=== PATIENT | female | born 1965 | race Caucasian/White ===

== ENCOUNTER → 2018-05-24 | Outpatient (CLI) | payer OTHER ==
[2018-05-24 12:06] LABS: Basophils % (A) 1 %; Eosinophils # (A) 0.1 k/uL (0-0.7); Eosinophils % (A) 2 %; HCT 42.3 % (34.0-46.0); HGB 13.8 gm/dL (11.4-16.0); Lymphocytes # (A) 1.3 k/uL (1.0-4.8); Lymphocytes % (A) 19 %; MCH 29.4 pg (25.0-35.0); MCHC 32.5 g/dL (31.0-37.0); MCV 90.5 fL (80.0-100.0); Mean Platelet Volume 7.2; Monocytes # (A) 0.3 k/uL (0-1.0); Monocytes % (A) 5 %; Neutrophils # (A) 5.1 k/uL (1.3-7.7); Neutrophils % (A) 73 %; Platelet Count 303 k/uL (150-450); RBC 4.68 m/uL (3.80-5.40); RDW 13.1 % (11.5-15.5)
[2018-05-24 13:23] LABS: Erythrocyte Sedimentation Rate 13 mm/hr (0-20)
[2018-05-24 16:12] LABS: Albumin 4.4 g/dL (3.80-4.90); Albumin/Globulin Ratio 1.91 (1.20-2.10); Anion Gap 4.8 mmol/L (4.00-12.00); Calcium 9.5 mg/dL (8.7-10.3); Carbon Dioxide 31.2 mmol/L (21.6-31.8); Globulin 2.3 g/dL (2.1-3.7); Potassium 4.2 mmol/L (3.5-5.5); Total Bilirubin 0.6 mg/dL (0.3-1.2); Total Protein 6.7 g/dL (6.2-8.2)
[2018-05-24 17:26] LABS: Rheumatoid Factor 7 IU/mL (0-15)
[2018-05-25 04:13] LABS: Angiotensin-1 Converting Enz. 57 U/L (8-52)
[2018-05-25 13:30] LABS: C-ANCA <1:20 Titer (<1:20); P-ANCA <1:20 Titer (<1:20)
== END | disposition home or self-care (01) ==
LOC: LABWHC1 10:40
PROVIDERS: ATTEND Internal Medicine Critical Care Medicine
DX: R91.8 Other nonspecific abnormal finding of lung field (principal)
CPT/HCPCS: 36415; 80053; 82164; 85025; 85652; 86038; 86255; 86431

== ENCOUNTER 2018-06-01 09:28 | Day surgery (SDC) | payer OTHER ==
[2018-05-26 15:40] VITALS: BMI 21.4
[~2018-06-01 09:28] MED LIST: ALBUTEROL NEB (CONC) 2.5 MG/0.5 ML INHALATION ONE; DEXAMETHASONE SOD PHOSPHATE 10 MG/ML 1 ML VIAL IV ONE; LACTATED RINGERS 1,000 ML IV ONE; LACTATED RINGERS 1,000 ML IV SCH; LIDOCAINE 1% 20 ML VIAL (10MG/ML) FOR IV START INTRADERMA PRN; LIDOCAINE 2% (PF) 20 MG/ML 2 ML AMP INHALATION ONE; LIDOCAINE VISCOUS 300 MG/15 ML CUP MUCOUS MEM ONE; MIDAZOLAM 2 MG/2 ML VIAL IV PRN; ONDANSETRON 4 MG/2 ML VIAL IVP ONE; fentaNYL (PF) 50 MCG/ML 2 ML AMP IV PRN
[2018-06-01] MEDS ORDERED: LIDOCAINE 1% INJ 10MG/ML (20 ML MDV) ONE ×2 (12:44)
[2018-06-01] MEDS ORDERED: GLYCOPYRROLATE 0.2 MG/ML 2 ML VIAL ONE (12:44)
[2018-06-01] MEDS ORDERED: fentaNYL (PF) 50 MCG/ML 2 ML AMP ONE (12:44)
[2018-06-01] MEDS ORDERED: PROPOFOL 10 MG/ML 20 ML VIAL IV ONE (12:44)
[2018-06-01] MEDS ORDERED: MIDAZOLAM 2 MG/2 ML VIAL ONE (12:44)
[2018-06-01] MEDS ORDERED: LACTATED RINGERS 1,000 ML IV ONE (13:20)
--- NOTE | 2018-06-01 13:25 | P.PCN ---
Date of Procedure: 06/01/18 Preoperative Diagnosis: Bilateral pulmonary nodules Postoperative Diagnosis: Bilateral pulmonary nodule Procedure(s) Performed: Medications bronchoscopy, flexible bronchoscopy, bronchoalveolar lavage, transbronchial biopsy Anesthesia: JOIEA Surgeon: Ortiz Duque Twister Tender #1: Kailyn Merida Estimated Blood Loss (ml): 5 Pathology: other Condition: stable Disposition: same day Operative Findings: This is a navigational bronchoscopy that was done and the operating room. The patient had a preoperative CAT scan of the chest and the CAT scan data was uploaded into the [facility] navigational system. There V pads was applied to the chest. Following that, the patient was brought into the operating room and she was intubated in the usual fashion by anesthesia after being induced by propofol. The patient was being adequately ventilated and oxygenated. I was able to insert the flexible bronchoscope through the orotracheal tube and the tube was gradually advanced into the lower trachea. The the tip of the ET tube was seen around 2 cm above the serene. A quick airway inspection was done. There was significant amount of loose but creamy beige respiratory secretions scattered throughout the lung soni bilaterally and there was some underlying bronchial inflammatory changes bilaterally. No endobronchial lesions or tumors identified. Airway inspection was completed and the visualized airways included a bilateral mainstem bronchi, right upper lobe bronchus, right middle lobe bronchus, right lower lobe bronchus, left upper lobe bronchus and left lower lobe bronchus along with its various segments and subsegments. Following this, the appropriate calibration was done for the navigational system with 2 reference points and these were the main serene and the secondary serene and the right upper lobe. Following that, a bronchioloalveolar lavage of the right middle lobe was done. A total of 80 mL of fluid was infused and 25 mL of fluid was aspirated. Following that, transbronchial biopsies of the right lower lobe superior segment lesion was done under navigational guidance. This was a cavitating lesion located in the superior segment of the right lower lobe. The target was accessed with 0 mm accuracy and multiple transbronchial biopsies were obtained. Following that the bronchoscope was moved to the right upper lobe and similar biopsies of the right upper lobe nodule was done using medication guidance. Total amount of bleeding was less than 5 ML's. At the end of the procedure, therapeutic it was suctioning was done and the bronchoscope was removed and the patient was extubated and transferred to recovery in stable condition. Chest x-ray will be done to rule out pneumothorax and the samples will be sent for microbial and pathologic analysis. The patient will be discharged once cleared by anesthesia.
[2018-06-01 13:43] VITALS: TEMP 98.9
[2018-06-01 14:18] VITALS: RESP 18
--- NOTE | 2018-06-01 14:35 | XR ---
EXAMINATION TYPE: XR chest 1V portable DATE OF EXAM: 06/01/2018 COMPARISON: CT chest 06/21/2018 HISTORY: Status post bronchoscopy TECHNIQUE: Single frontal view of the chest is obtained. FINDINGS: Airspace disease present in the right upper lobe likely due to post bronchoscopy change. N o evident pneumothorax or pleural effusion. Nodularity again noted within the upper lobes. Postop lety nge noted in the cervical spine. Heart size is within normal limits. IMPRESSION: No evident pneumothorax or pleural effusion post bronchoscopy.
[2018-06-01 14:54] VITALS: PULSE 89
[2018-06-01 15:18] VITALS: BP 110/65
--- NOTE | 2018-06-02 13:55 | CT ---
EXAMINATION TYPE: CT Chest gr[facility] Protocol DATE OF EXAM: 06/01/2018 COMPARISON: None. HISTORY: Lung mass CT DLP: 560 mGycm Automated exposure control for dose reduction was used. FINDINGS: CT of the thorax is performed without contrast. Exam is for bronchoscopy planning and not for diagnos tic purposes. Underlying mild/moderate emphysematous change is present. There is a thick-walled cavit allison lesion at superior aspect right lower lobe. There are some peripheral nodules and reticulonodular infiltrates in the right upper lobe, largest measures 12 x 13 mm axial image 16. Scattered smaller p eripheral nodules throughout the left lung are present. No cardiomegaly is seen. Low dense left adren al 1.5 cm mass favors benign lipid rich adenoma. There is partial visualization of surgical hardware in the lower cervical spine. IMPRESSION: ABOVE.
== END 2018-06-01 15:29 | disposition home or self-care (01) ==
LOC: ORWHC2ENDO 09:28
PROVIDERS: ATTEND Internal Medicine Critical Care Medicine
DX: J84.10 Pulmonary fibrosis, unspecified (principal); F32.9 Major depressive disorder, single episode, unspecified; M54.30 Sciatica, unspecified side; G56.01 Carpal tunnel syndrome, right upper limb; Z87.891 Personal history of nicotine dependence; Z79.891 Long term (current) use of opiate analgesic; Z79.899 Other long term (current) drug therapy; Z88.2 Allergy status to sulfonamides; Z98.1 Arthrodesis status; Z98.51 Tubal ligation status
CPT/HCPCS: 94640; 88108; 88305; 88312; 71045; 71250; 31628; 31624; 31627; J2250; J1100; J2405; J2001 ×2; J3010; J2704; 31625

== ENCOUNTER → 2018-06-12 | Outpatient (CLI) | payer OTHER ==
--- NOTE | 2018-06-14 12:04 | PE ---
Nuclear medicine PET/CT HISTORY: Lung mass, initial Patient received 13.1 mCi F-18 FDG intravenously in delayed scanning was performed from the skull bas e to the mid thighs. Localization and attenuation correction CT scan was performed. Correlation to CT chest 06/01/2018 Neck and CHEST: There is no cervical adenopathy, no supraclavicular adenopathy evident. Borderline en larged node present in the superior mediastinum measures approximately 10 to 11 mm. No pleural or per icardial effusion. Multiple nodules are present in the right upper lobe some of which are calcified o r may show mild hypermetabolic uptake. There is airspace disease present in the right middle lobe, hy permetabolic uptake 7.4. Nodules also present in the right lower lobe, some of these nodules are cavi tary, the largest measures approximately 3 cm with an air-fluid level. More central nodule in the rig ht lower lobe shows confluent density with associated hypermetabolic uptake, SUV 10.5. The increased attenuation within the superior segment of the right lower lobe has progressed in the interval. Right hilar node inferiorly shows an SUV of 8.3. Along the internal mammary chain inferiorly there is some hypermetabolic uptake, SUV 7.3 on the right. Right upper lobe shows a wedge-shaped area of increased attenuation and nodular peripheral focus with central calcification, SUV is 6.3 along the confluent density extending to the nodule which is an interval finding. Left upper lobe shows a some pleural no dular focus with calcification without hypermetabolic uptake. Additional nodular foci are subcentimet er in size in the left upper lobe without hypermetabolic uptake. Small subpleural lingular focus of i ncreased density measures only subcentimeter in size with mild uptake. Abdomen pelvis: Low dense focus in the left adrenal gland may represent adenoma, no hypermetabolic up take. The spleen is borderline enlarged. Osseous structures show postop change in the lower lumbar spine post laminectomies. Postop change als o noted in the cervical spine. No suspicious hypermetabolic uptake. IMPRESSION: There is progression of airspace disease, abnormal hypermetabolic uptake in the right sundar g progression of nodularity compared to prior exam, multiple cavitary lesions suspicious for metastat ic disease. Underlying remote granulomatous disease is present. Splenomegaly.
== END | disposition home or self-care (01) ==
LOC: RADPETMAIN 11:35
PROVIDERS: ATTEND Internal Medicine Critical Care Medicine
DX: R91.1 Solitary pulmonary nodule (principal)
CPT/HCPCS: 78815; A9552

== ENCOUNTER → 2018-07-07 | Outpatient (CLI) | payer OTHER ==
[2018-07-07 13:19] LABS: Basophils % (A) 1 %; Eosinophils # (A) 0.2 k/uL (0-0.7); Eosinophils % (A) 3 %; HCT 43.9 % (34.0-46.0); Lymphocytes # (A) 1.4 k/uL (1.0-4.8); Lymphocytes % (A) 20 %; MCH 29.1 pg (25.0-35.0); MCHC 31.9 g/dL (31.0-37.0); MCV 91.3 fL (80.0-100.0); Mean Platelet Volume 6.8; Monocytes # (A) 0.4 k/uL (0-1.0); Monocytes % (A) 5 %; Neutrophils # (A) 4.9 k/uL (1.3-7.7); Neutrophils % (A) 70 %; Platelet Count 359 k/uL (150-450); RBC 4.81 m/uL (3.80-5.40); RDW 13.7 % (11.5-15.5)
[2018-07-07 19:23] LABS: Albumin 4.3 g/dL (3.80-4.90); Albumin/Globulin Ratio 1.79 (1.20-2.10); Anion Gap 7.7 mmol/L (4.00-12.00); Calcium 9.1 mg/dL (8.7-10.3); Carbon Dioxide 31.3 mmol/L (21.6-31.8); Globulin 2.4 g/dL (2.1-3.7); Potassium 3.8 mmol/L (3.5-5.5); Total Bilirubin 0.8 mg/dL (0.3-1.2); Total Protein 6.7 g/dL (6.2-8.2)
[2018-07-07 20:01] LABS: Hepatitis C IgG Antibody Non-Reactive (Non-Reactive)
[2018-07-07 20:47] LABS: HIV 1 AB Non-Reactive (Non-Reactive); HIV AB P24 Non-Reactive (Non-Reactive); HIV P24 AG Non-Reactive (Non-Reactive)
[2018-07-08 12:26] LABS: T4/T8 Ratio (CD4:CD8) 2.5 (1.0-3.7)
== END | disposition home or self-care (01) ==
LOC: LABWHC1 12:22
PROVIDERS: ATTEND Internal Medicine Infectious Disease
DX: A31.2 Disseminated mycobacterium avium-intracellulare complex (DMAC) (principal)
CPT/HCPCS: 36415; 80053; 82784; 85025; 86360; 86803; 87390

== ENCOUNTER 2018-09-16 08:30 | Day surgery (SDC) | payer OTHER ==
[2018-09-14 11:50] VITALS: BMI 22.1
[~2018-09-16 08:30] MED LIST changes: -ALBUTEROL NEB (CONC) 2.5 MG/0.5 ML INHALATION ONE; -DEXAMETHASONE SOD PHOSPHATE 10 MG/ML 1 ML VIAL IV ONE; -LIDOCAINE 1% 20 ML VIAL (10MG/ML) FOR IV START INTRADERMA PRN; +LIDOCAINE 2% (PF) 20 MG/ML 10 ML AMP INHALATION ONE; -LIDOCAINE 2% (PF) 20 MG/ML 2 ML AMP INHALATION ONE; +LIDOCAINE VISCOUS 2% 15 ML CUP MUCOUS MEM ONE; -LIDOCAINE VISCOUS 300 MG/15 ML CUP MUCOUS MEM ONE; -MIDAZOLAM 2 MG/2 ML VIAL IV PRN; -ONDANSETRON 4 MG/2 ML VIAL IVP ONE; -fentaNYL (PF) 50 MCG/ML 2 ML AMP IV PRN
[2018-09-16 09:24] VITALS: RESP 16; TEMP 98.6
[2018-09-16] MEDS ORDERED: LACTATED RINGERS 1,000 ML IV ONE (09:36)
[2018-09-16] MEDS ORDERED: LIDOCAINE 1% 20 ML VIAL (10MG/ML) FOR IV START INTRADERMA ONE (09:38)
[2018-09-16] MEDS ORDERED: KETAMINE 10 MG/ML 20 ML VIAL ONE (09:59)
[2018-09-16] MEDS ORDERED: GLYCOPYRROLATE 0.2 MG/ML 2 ML VIAL ONE (09:59)
[2018-09-16] MEDS ORDERED: PROPOFOL 10 MG/ML 20 ML VIAL IV ONE (09:59)
[2018-09-16] MEDS ORDERED: MIDAZOLAM 2 MG/2 ML VIAL ONE (09:59)
[2018-09-16] MEDS ORDERED: LIDOCAINE 2% INJ 20 MG/ML INTRATRACH ONE (10:11)
--- NOTE | 2018-09-16 10:23 | P.PCN ---
Date of Procedure: 09/16/18 Preoperative Diagnosis: Pulmonary MAC infection Postoperative Diagnosis: Pulmonary MAC infection Procedure(s) Performed: Flexible bronchoscopy, bronchial alveolar lavage of the right middle lobe Anesthesia: MAC Surgeon: Ortiz Duque Almond Paste Mixer #1: Kailyn Merida Estimated Blood Loss (ml): 0 Pathology: none sent Condition: stable Disposition: same day Operative Findings: This procedure was done in the bronchoscopy suite. The patient has a confirmed history of Mycobacterium avium complex pulmonary infection. The patient has been on antibiotic treatment utilizing triple antibiotics for the past 3 months. The patient is coming in for another bronchioloalveolar lavage to assess the adequacy of the treatment and make sure she is a culture negative. This procedure was done under conscious sedation. The patient was given propofol and the total amount of propofol given was undergoing milligrams IV. After achieving adequate sedation Flexible bronchoscope was inserted through the right nostril. The posterior oropharynx larynx and epiglottis and vocal cords and the vallecula were all within normal limits. A total of 1% lidocaine was applied to the vocal cords and following that the bronchoscope was advanced into the upper trachea. Examination tracheal bronchial tree was done. There was some minimal amount of necrosis or secretions retained throughout the airway. There was no blood. There was no foreign bodies. The airways inspected included the trachea, bilateral mainstem bronchi, right upper lobe bronchus, right upper lobe bronchus, right lower lobe bronchus, left upper lobe bronchus and left lower lobe bronchus amongst various segments and subsegments. No endobronchial tumors or lesions. The bronchioloalveolar lavage of the right middle lobe was done. A total of 80 mL of fluid was infused and 25 mL's was aspirated. The aspirate was nonbloody. No complications. Bronchoscope was removed. The patient recovered nicely and the patient will be transferred recovery and then discharged home. The samples from the bronchioloalveolar lavage will be sent for mycobacterial cultures.
[2018-09-16] MEDS ORDERED: ACETAMINOPHEN TAB 500 MG TAB PO ONE (10:55)
[2018-09-16 10:57] VITALS: BP 110/69; PULSE 86
[2018-09-16 14:43] LABS: Appearance,BF Cloudy
[2018-09-16 14:45] LABS: Nucleated Cells, Body Fluid 520 /uL; RBC, Body Fluid 300 /uL
[2018-09-16 15:59] LABS: Mononuclear WBC,Body Fluid 37 %; Polynuclear WBC,Body Fluid 63 %; Total Cells Counted,Body Fluid 100
== END 2018-09-16 11:16 | disposition home or self-care (01) ==
LOC: ORWHC2ENDO 08:30
PROVIDERS: ATTEND Internal Medicine Critical Care Medicine
DX: A31.0 Pulmonary mycobacterial infection (principal); F32.9 Major depressive disorder, single episode, unspecified; Z87.891 Personal history of nicotine dependence; Z79.2 Long term (current) use of antibiotics; Z79.1 Long term (current) use of non-steroidal anti-inflammatories (NSAID); Z79.891 Long term (current) use of opiate analgesic; Z88.2 Allergy status to sulfonamides; Z91.048 Other nonmedicinal substance allergy status
CPT/HCPCS: 94640; 88108; 88305; 89050; 87070; 87205; 31624; J2001 ×2; J2250; J2704

== ENCOUNTER 2019-08-11 10:15 | Day surgery (SDC) | payer OTHER ==
[2019-08-10 10:12] VITALS: BMI 22.1
[~2019-08-11 10:15] MED LIST changes: -LACTATED RINGERS 1,000 ML IV ONE; -LIDOCAINE 2% (PF) 20 MG/ML 10 ML AMP INHALATION ONE; -LIDOCAINE VISCOUS 2% 15 ML CUP MUCOUS MEM ONE
[2019-08-11] MEDS ORDERED: LIDOCAINE 1% 20 ML VIAL (10MG/ML) FOR IV START INTRADERMA ONE (11:56)
[2019-08-11 12:00] VITALS: TEMP 98.5
[2019-08-11 12:06] LABS: Glucose,Whole Blood 64 mg/dL (75-99)
[2019-08-11 12:23] LABS: Glucose,Whole Blood 246 mg/dL (75-99)
[2019-08-11] MEDS ORDERED: PROPOFOL 10 MG/ML 20 ML VIAL IV ONE (12:31)
--- NOTE | 2019-08-11 12:51 | P.PCN ---
Date of Procedure: 08/11/19 Procedure(s) Performed: BRIEF HISTORY: Patient is a 3-year-old pleasant white female scheduled for an elective colonoscopy as a part of screening for colorectal neoplasia. PROCEDURE PERFORMED: Colonoscopy with snare polypectomy. PREOPERATIVE DIAGNOSIS: Screening for colon cancer IV sedation per Anesthesia. PROCEDURE: After informed consent was obtained, the patient, was brought into the endoscopy unit. IV sedation was administered by Anesthesia under continuous monitoring. Digital rectal examination was normal. Initially the Olympus CF-160 flexible video colonoscope was then inserted in the rectum, gradually advanced into the cecum without any difficulty. Careful examination was performed as the scope was gradually being withdrawn. Ileocecal valve and the appendiceal orifice were visualized and appeared normal. Prep was excellent. In the base of the cecum there was a 5 mm sessile polyp that was removed by snare polypectomy. Mucosa of the cecum, ascending colon, was normal. In the transverse colon there was another 5 mm flat polyp removed by snare polypectomy. Rest of the transve rse colon, descending colon, sigmoid colon, and rectum appeared normal. Retroflexion was performed in the rectum and no lesions were seen. The patient tolerated the procedure well. IMPRESSION: 5 mm cecal polyp status post snare polypectomy 5 mm; transverse colon polyp status post snare polypectomy RECOMMENDATIONS: Findings of this examination were discussed with the patient well as her family. She was advised to follow with the biopsy results. If the biopsy shows an adenoma she can have a repeat colonoscopy in 5 years.
[2019-08-11 13:04] LABS: Glucose,Whole Blood 143 mg/dL (75-99)
[2019-08-11 13:20] VITALS: BP 97/52; PULSE 70; RESP 18
== END 2019-08-11 13:30 | disposition home or self-care (01) ==
LOC: ORWHC2ENDO 10:15
PROVIDERS: ATTEND Internal Medicine Gastroenterology
DX: Z12.11 Encounter for screening for malignant neoplasm of colon (principal); D12.0 Benign neoplasm of cecum; D12.3 Benign neoplasm of transverse colon; Z88.2 Allergy status to sulfonamides; Z87.891 Personal history of nicotine dependence; Z79.899 Other long term (current) drug therapy; Z86.19 Personal history of other infectious and parasitic diseases; Z87.09 Personal history of other diseases of the respiratory system
CPT/HCPCS: 88305; 45385; J2704

== ENCOUNTER → 2019-09-26 | Outpatient (CLI) | payer OTHER | END | disposition home or self-care (01) | LOC: LABWHC1 12:15 | PROVIDERS: ATTEND Internal Medicine Critical Care Medicine | DX: Z53.9 Procedure and treatment not carried out, unspecified reason (principal) ==

== ENCOUNTER → 2019-09-27 | Outpatient (CLI) | payer OTHER ==
[2019-09-27 09:48] LABS: Basophils % (A) 1 %; Eosinophils # (A) 0.2 k/uL (0-0.7); Eosinophils % (A) 3 %; HCT 44.2 % (34.0-46.0); HGB 14.5 gm/dL (11.4-16.0); Lymphocytes # (A) 1.3 k/uL (1.0-4.8); Lymphocytes % (A) 26 %; MCH 30.3 pg (25.0-35.0); MCHC 32.8 g/dL (31.0-37.0); MCV 92.5 fL (80.0-100.0); Mean Platelet Volume 7.2; Monocytes # (A) 0.3 k/uL (0-1.0); Monocytes % (A) 6 %; Neutrophils # (A) 3.1 k/uL (1.3-7.7); Neutrophils % (A) 62 %; Platelet Count 326 k/uL (150-450); RBC 4.78 m/uL (3.80-5.40); RDW 12.1 % (11.5-15.5); WBC 4.9 k/uL (3.8-10.6)
[2019-09-27 16:55] LABS: African American GFR (CKD) 95.5 (60.0-200.0); Albumin 4.2 g/dL (3.80-4.90); Anion Gap 5.2 mmol/L (4.00-12.00); BUN/Creat Ratio 11.25 Ratio (12.00-20.00); Calcium 9.5 mg/dL (8.7-10.3); Carbon Dioxide 29.8 mmol/L (21.6-31.8); Globulin 2.1 g/dL (1.6-3.3); Non-African American GFR(CKD) 82.4 (60.0-200.0); Potassium 4.2 mmol/L (3.5-5.5); Total Bilirubin 0.5 mg/dL (0.2-1.2); Total Protein 6.3 g/dL (6.2-8.2)
== END | disposition home or self-care (01) ==
LOC: LABWHC1 08:55
PROVIDERS: ATTEND Internal Medicine Critical Care Medicine
DX: A31.0 Pulmonary mycobacterial infection (principal)
CPT/HCPCS: 36415; 80053; 85025

== ENCOUNTER → 2022-05-19 | Outpatient (CLI) | payer OTHER ==
--- NOTE | 2022-05-19 09:05 | MR ---
EXAMINATION TYPE: MR cervical spine wo/w con DATE OF EXAM: 05/19/2022 COMPARISON: PET/CT 06/12/2018. HISTORY: Left arm pain, hx of prior surgery TECHNIQUE: Multiplanar, multisequence images of the cervical spine were acquired without contrast and with 7 mL intravenous Gadavist gadolinium contrast. FINDINGS: Cervical segments are intact. Craniovertebral junction relationships are within normal limits. Posts urgical changes with anterior fusion fixation hardware involving C5-C7. Hardware appears intact. Mild reversal the normal cervical lordosis. No suspicious osseous lesions. No abnormal contrast enhanceme nt. No abnormal spinal cord signal. Multilevel disc desiccation. C2-C3: No disc bulge/herniation or protrusion. No Canal stenosis. Uncovertebral joint hypertrophy an d left facet arthropathy. Mild left neural foraminal stenosis. The right neural foramen is patent. C3-C4: No disc bulge/herniation or protrusion. No Canal stenosis. Uncovertebral joint hypertrophy an d bilateral facet arthropathy. Mild right and moderate left neural foraminal stenosis. C4-C5: Broad-based disc bulge with minimal effacement of the anterior thecal sac. Mild central canal stenosis. Uncovertebral joint hypertrophy with mild bilateral neural foraminal stenosis. C5-C6: Posterior disc osteophyte complex without significant central canal stenosis. Uncovertebral cristofer int and facet hypertrophy contribute to moderate bilateral neural foraminal stenosis. C6-C7: Posterior disc osteophyte complex without significant central canal stenosis. Uncovertebral cristofer int and facet hypertrophy contribute to moderate right and mild left neural foraminal stenosis. C7-T1: No disc bulge/herniation or protrusion. No Canal stenosis. Foramina are patent bilaterally. Other: Partial visualization of patchy airspace opacities within the right upper lobe. No visualized adenopathy. IMPRESSION: 1. Multilevel degenerative disc disease with mild spinal canal stenosis at C4-C5 and multilevel varyi ng degrees of neural foraminal stenosis as described above. No abnormal contrast enhancement. 2. Postsurgical changes from C5 through C7 with anterior cervical fusion.
--- NOTE | 2022-05-20 01:47 | MR ---
EXAMINATION TYPE: MR shoulder LT wo con DATE OF EXAM: 05/19/2022 COMPARISON: None HISTORY: Left arm pain, Multiplanar multiecho imaging of the left shoulder with no contrast. The biceps tendon is intact. The glenoid jolene appear intact. Subscapularis tendon appears normal. No evidence of joint effusion. The supraspinatus tendon is intact. The infraspinatus tendon is intact. AC joint appears normal. No s ubacromial impingement. No evidence of a fracture. IMPRESSION: Normal MRI scan of the left shoulder. No evidence of rotator cuff tear.
== END | disposition home or self-care (01) ==
LOC: RADMRIMAIN 07:01
PROVIDERS: ATTEND Orthopaedic Surgery Orthopaedic Surgery of the Spine
DX: M54.12 Radiculopathy, cervical region (principal); M25.512 Pain in left shoulder; M25.78 Osteophyte, vertebrae; M50.321 Other cervical disc degeneration at C4-C5 level; R53.1 Weakness
CPT/HCPCS: 72156; 73221; A9585

== ENCOUNTER → 2024-06-28 | Outpatient (CLI) | payer BC ==
--- NOTE | 2024-06-28 12:08 | CT ---
EXAMINATION TYPE: CT chest w con CT DLP: 151.40 mGycm, Automated exposure control for dose reduction was used. DATE OF EXAM: 06/28/2024 11:52 AM COMPARISON: PET CT 06/12/2018, CT chest 06/02/2018 CLINICAL INDICATION:Female, 59 years old with history of R04.2 HEMOPTYSIS; PHH, hemoptysis x 1 week. hx of mycobacterium avium. TECHNIQUE: Multiple axial images were obtained through the chest following the administration of 100 cc of Isovue 300. . Coronal and sagittal reformats reviewed. FINDINGS: LUNGS/ PLEURA: No pleural effusion or pneumothorax. Right apical pleural-parenchymal scarring. Scatt ered calcified granulomas redemonstrated within the lungs again. There is similar appearance of patch y tree-in-bud nodular opacities within the left midlung. Additional similar appearance of patchy nodu lar opacities throughout the right upper and lung. Decreased size of cavitary lesion within the poste rior aspect of the superior segment of the right lower lobe with a cavitary component measuring up to 1.7 cm, previously measured up to 2.3 cm. There is an increased size of a cavitary lesion within the peripheral right upper lobe measuring up to 0.8 cm, previously measured up to 0.6 cm. New right uppe r lobe peripheral 1.4 cm cavitary lesion with adjacent 1.3 cm nodular opacity (series 4, image 16 and 15). Development of minimal right infra perihilar groundglass opacities which is new from prior exam . AIRWAY: Patent and unremarkable.. HEART: Size within normal limits.No pericardial effusion. MEDIASTINUM: No definitively enlarged mediastinal lymph nodes. Calcified lymph nodes within the left hilum. VASCULATURE: No aortic aneurysm. Bovine aortic arch. MUSCULOSKELETAL: No acute osseous abnormalities. Post visualization of anterior cervical fusion hardw are. Mild multilevel degenerative disc disease of the thoracic spine. SOFT TISSUES/LYMPH NODES: Unremarkable. LOWER NECK: No significant findings. UPPER ABDOMEN: Stable left adrenal gland 2.0 cm nodule dating back to 2018 and favored to be benign. IMPRESSION: 1. Redemonstration of airspace opacities with cavitary lesions from prior exam in 2018. Most of the l esions are relatively similar from prior exam however there are few new cavitary/nodular lesions with in the periphery of the right upper lobe and developing right infrahilar groundglass opacities concer erina for infectious/inflammatory process. Underlying malignancy is not excluded. 2. Sequelae of prior granulomatous disease. [facility], , 06/28/2024 12:05 PM
--- NOTE | 2024-06-30 12:13 | P.PCN ---
Date of Procedure: 06/30/24 Preoperative Diagnosis: hemptysis Postoperative Diagnosis: Hemoptysis, rule out recurrent MAC infection No active bleeding and the patient has moderate amount of bloody secretions pooled within the airway, suspected to originate from the right upper lobe posterior segment Tracheobronchomalacia Procedure(s) Performed: Bronchoscopy, bronchoalveolar lavage of the right upper lobe Anesthesia: MAC Surgeon: Ortiz Duque Estimated Blood Loss (ml): 0 Pathology: other Condition: stable Disposition: same day Operative Findings: This is a 59-year-old female patient with history of pulmonary MAC infection. The patient was treated between 2017 -2019 with triple antibiotics. Her c ondition was stable and the patient was having occasional episodes of hemoptysis over the years. Nevertheless, over the past 2 weeks, the patient developed increased hemoptysis and she continued to have persistent hemoptysis and there was a concern for a recurrent MAC infection. CAT scan of the chest was done and it showed Airspace opacities and cavitation similar to the previous examination from 2019. The findings were relatively similar. However, there was new nodular and cavitary lesion in the right upper lobe and a right infrahilar groundglass opacity. Based on that, a bronchoscopy was requested This procedure was done under conscious sedation with anesthetic agents being administered by anesthesia at the bedside. The patient was given propofol. The patient was placed on a 10 L simple facemask. Achieving adequate sedation, the bronchoscope was introduced through the left nostril into the presence of the upper airway. Examination of the posterior pharynx larynx epiglottis arytenoids and vocal cords was done and there was some bloody secretions covering the cords. The vocal cord function and mobility was within normal limits. There was normal abduction and adduction. A total of 2 cc of 1% lidocaine was applied to the vocal cord and following that the flexor bronchoscope was introduced into the upper trachea. Examination airway was done. There was bloody secretions scattered throughout the trachea essentially covering the posterior membranous wall of the trachea. No secretions were easily suctioned out. Following that, I performed an inspection of the left mainstem bronchus, left upper and left lower lobe bronchus and the various segments of the left side and the respiratory bloody secretions were essentially scant on the left. There was more bloody secretions in the right and upon careful inspection, I suspected the origin of the bleeding was the posterior segment of the right upper lobe. There was few clots completely occluding the posterior segment of the right upper lobe and the bloody secretions were also pulling in the right upper lobe bronchus. Bloody secretions in the bronchus intermedius were less abundant. Right middle lobe bronchus and the various segments were patent and within normal limits. Right lower lobe had some bloody secretions that were suctioned out. Examination of the right lower lobe including the medial basilar, anterior lateral and posterior segments and superior segment and they were all patent and within normal limits. At this point, the bronchoscope was moved to the right upper lobe and a bronchi oloalveolar lavage of the posterior segment was done. A total of 80 cc of saline was infused and around 30 cc was suctioned back and the aspirate was bloody. Therapeutic airway suctioning was done. Respiratory secretions were all suctioned out. There was no signs of any active bleeding. There was no endobronchial tumors or lesions. It was noted that the patient has a component of tracheobronchomalacia upon inspecting the airways. Plan The bronchioloalveolar lavage will be sent for microbial cultures including AFB and mycobacterial cultures and MAC by PCR Will make further recommendations on treatment based on the cultures. Monitor hemoptysis and contact me back should there be any worsening in her hemoptysis
== END | disposition home or self-care (01) ==
LOC: RADCTMAIN 10:48
PROVIDERS: ATTEND Internal Medicine Critical Care Medicine
DX: R04.2 Hemoptysis (principal)
CPT/HCPCS: 71260; Q9967

== ENCOUNTER 2024-06-30 10:47 | Day surgery (SDC) | payer BC ==
[2024-06-30 11:19] VITALS: TEMP 98.9
[2024-06-30] MEDS: IV FLUID CONTINUATION 1,000 ML IV ONE ×2 (11:19→11:46)
[2024-06-30] MEDS: LACTATED RINGERS 1,000 ML IV SCH (11:19)
[2024-06-30] MEDS ORDERED: LACTATED RINGERS 1,000 ML IV SCH (11:21)
[2024-06-30 11:27] LABS: Glucose,Whole Blood 85 mg/dL (70-110)
[2024-06-30] MEDS: ONDANSETRON 4 MG/2 ML VIAL IVP STA (11:38)
[2024-06-30] MEDS ORDERED: PROPOFOL 10 MG/ML 20 ML VIAL IV ONE (11:47)
[2024-06-30] MEDS ORDERED: LIDOCAINE 1% INJ 10MG/ML (20 ML MDV) ONE (11:47)
[2024-06-30] MEDS: LIDOCAINE 2% INJ 20 MG/ML INTRATRACH ONE (11:52)
[2024-06-30 12:14] VITALS: RESP 18
[2024-06-30 12:45] VITALS: BP 108/61; PULSE 82
[2024-07-01 06:10] LABS: Appearance,BF Bloody (Clear); RBC, Body Fluid 1972 /UL (0-2000)
[2024-07-01 09:57] LABS: Nucleated Cells, Body Fluid 111 /UL
== END 2024-06-30 12:50 | disposition home or self-care (01) ==
LOC: ORWHC2ENDO 10:47
PROVIDERS: ATTEND Internal Medicine Critical Care Medicine
DX: R04.2 Hemoptysis (principal); J98.09 Other diseases of bronchus, not elsewhere classified; A31.0 Pulmonary mycobacterial infection; R91.8 Other nonspecific abnormal finding of lung field; Z79.899 Other long term (current) drug therapy; Z87.891 Personal history of nicotine dependence; Z88.2 Allergy status to sulfonamides; Z91.048 Other nonmedicinal substance allergy status; Z80.1 Family history of malignant neoplasm of trachea, bronchus and lung
CPT/HCPCS: 89050; 87070; 87205; 87116; 87102; 87206; 31624; J2405; J2003 ×2; J2704